=== PATIENT | female | born 1990 | race Two or more races ===

== ENCOUNTER 2019-01-25 04:04 | Inpatient (IN) | payer OTHER ==
[~2019-01-25] VITALS: Ht 157.5 cm; Wt 54.0 kg
[2019-01-25] MEDS ORDERED: OXYTOCIN 30U/ 0.9% NaCL 500ML 500 ML IV PRN (06:24)
[2019-01-25] MEDS ORDERED: OXYTOCIN 30U/ 0.9% NaCL 500ML 500 ML IV ONE (06:24)
[2019-01-25] MEDS ORDERED: D5%-LACTATED RINGERS 1,000 ML IV SCH (06:24)
[2019-01-25] MEDS ORDERED: LACTATED RINGERS 1,000 ML IV SCH (06:24)
[2019-01-25] MEDS ORDERED: FENTANYL/BUPIV./NS/PF 250 ML EPIDCONT SCH (06:24)
[2019-01-25] MEDS ORDERED: NEWBORN KIT ONE (06:29)
[2019-01-25] MEDS: LACTATED RINGERS 1,000 ML IVBOLUS PRN ×2 (06:30→08:25)
[2019-01-25] MEDS ORDERED: EPHEDRINE 50 MG/ML, 1ML IVPush PRN (06:30)
[2019-01-25] MEDS ORDERED: LIDOCAINE 1%, 20ML ONE (06:30)
[2019-01-25] MEDS ORDERED: MISOPROSTOL 200 MCG TABLET ONE (06:30)
[2019-01-25] MEDS ORDERED: CALCIUM CARBONATE 500 MG TAB.CHEW PO PRN (06:30)
[2019-01-25] MEDS ORDERED: FENTANYL PF 100 MCG/2ML IVPush PRN (06:30)
[2019-01-25] MEDS ORDERED: ONDANSETRON 2MG/ML, 2ML IVPush PRN (06:30)
[2019-01-25] MEDS ORDERED: FENTANYL PF 100 MCG/2ML IV PRN (06:30)
[2019-01-25] MEDS ORDERED: OXYTOCIN 30U/ 0.9% NaCL 500ML 500 ML ONE (06:30)
[2019-01-25] MEDS ORDERED: TERBUTALINE 1 MG/ML, 1ML IVPush PRN (06:30)
[2019-01-25 06:53] LABS: BASOPHILS # (AUTO) 0.02 x10^3/uL (0-0.1); BASOPHILS % (AUTO) 0 % (0-1); EOSINOPHILS # (AUTO) 0.09 x10^3/uL (0-0.4); EOSINOPHILS % (AUTO) 1 % (1-7); LYMPHOCYTES # (AUTO) 1.89 x10^3/uL (1-3.4); LYMPHOCYTES % (AUTO) 15 % (22-44); MD NO; MEAN CORPUSCULAR HEMOGLOBIN 31.3 pg (27.0-34.8); MEAN CORPUSCULAR HGB CONC 33.2 g/dL (32.4-35.8); MEAN CORPUSCULAR VOLUME 94.4 fL (80-100); MEAN PLATELET VOLUME 8.8 fL (7.4-10.4); MONOCYTES # (AUTO) 0.72 x10^3/uL (0.2-0.8); MONOCYTES % (AUTO) 6 % (2-9); NEUTROPHILS % (AUTO) 78 % (42-75); PLATELET COUNT 223 x10^3/uL (130-400); RED BLOOD COUNT 4.27 x10^6/uL (3.82-5.3); RED CELL DISTRIBUTION WIDTH 14.3 % (9.6-15.2)
[2019-01-25] MEDS ORDERED: LIDOCAINE/PF 1.5%-EPI 1:200K, 30ML ONE (08:36)
[2019-01-25] MEDS: LACTATED RINGERS 1,000 ML IV SCH (11:03)
[2019-01-26] MEDS: LACTATED RINGERS 1,000 ML IV SCH ×4 (00:04→16:04)
[2019-01-26] MEDS ORDERED: FENTANYL/BUPIV./NS/PF 250 ML EPIDCONT SCH (00:04)
[2019-01-26] MEDS ORDERED: DIPHENHYDRAMINE 50 MG/ML, 1ML IVPush PRN (00:30)
[2019-01-26] MEDS ORDERED: NALOXONE 0.4 MG/ML, 1ML IVPush PRN (00:30)
[2019-01-26] MEDS ORDERED: EPHEDRINE 50 MG/ML, 1ML IVPush PRN (00:30)
[2019-01-26] MEDS ORDERED: ONDANSETRON 2MG/ML, 2ML IVPush PRN (00:30)
[2019-01-26] MEDS ORDERED: LACTATED RINGERS 1,000 ML IVBOLUS PRN (00:30)
[2019-01-26] MEDS ORDERED: METOCLOPRAMIDE 5 MG/ML, 2ML ONE (03:42)
[2019-01-26] MEDS ORDERED: SODIUM CITRATE/CITRIC ACID 30 ML UDC ONE (03:42)
[2019-01-26] MEDS ORDERED: OXYTOCIN 30U/ 0.9% NaCL 500ML 500 ML ONE (04:48)
[2019-01-26] MEDS: OXYTOCIN 30U/ 0.9% NaCL 500ML 500 ML IV SCH ×6 (05:02→15:02)
[2019-01-26 05:26] LABS: MEAN CORPUSCULAR VOLUME 94.3 fL (80-100); MEAN PLATELET VOLUME 8.7 fL (7.4-10.4); PLATELET COUNT 199 x10^3/uL (130-400); RED BLOOD COUNT 3.12 x10^6/uL (3.82-5.3); RED CELL DISTRIBUTION WIDTH 14.1 % (9.6-15.2)
[2019-01-26] MEDS ORDERED: IBUPROFEN 600 MG TABLET PO PRN (05:30)
[2019-01-26] MEDS ORDERED: CALCIUM CARBONATE 500 MG TAB.CHEW PO PRN (05:30)
[2019-01-26] MEDS ORDERED: OXYcodone IR 5MG TABLET PO PRN ×2 (05:30)
[2019-01-26] MEDS ORDERED: ACETAMINOPHEN 325 MG TABLET PO SCH (05:30)
[2019-01-26] MEDS ORDERED: BISACODYL 10 MG SUPP PR PRN (05:30)
[2019-01-26] MEDS ORDERED: MISOPROSTOL 200 MCG TABLET PR PRN (05:30)
[2019-01-26] MEDS ORDERED: ACETAMINOPHEN 325 MG TABLET PO PRN (05:30)
[2019-01-26] MEDS ORDERED: ONDANSETRON 2MG/ML, 2ML IV PRN (05:30)
[2019-01-26 05:45] LABS: BASOPHILS # (AUTO) 0.03 x10^3/uL (0-0.1); BASOPHILS % (AUTO) 0 % (0-1); EOSINOPHILS % (AUTO) 0 % (1-7); LYMPHOCYTES # (AUTO) 1.04 x10^3/uL (1-3.4); LYMPHOCYTES % (AUTO) 5 % (22-44); MD SCAN; MONOCYTES # (AUTO) 1.19 x10^3/uL (0.2-0.8); MONOCYTES % (AUTO) 5 % (2-9); NEUTROPHILS # (AUTO) 20.01 x10^3/uL (1.8-6.8); NEUTROPHILS % (AUTO) 90 % (42-75)
[2019-01-26] MEDS ORDERED: IBUPROFEN 600 MG TABLET ONE (06:25)
[2019-01-26 08:00] VITALS: BP 92/58
[2019-01-26] MEDS: PRENATAL VIT/IRON/FA 1 EACH TABLET PO SCH (09:00)
[2019-01-26 11:56] LABS: MEAN CORPUSCULAR HGB CONC 34.5 g/dL (32.4-35.8); MEAN CORPUSCULAR VOLUME 95.5 fL (80-100); MEAN PLATELET VOLUME 8.5 fL (7.4-10.4); PLATELET COUNT 173 x10^3/uL (130-400); RED BLOOD COUNT 2.42 x10^6/uL (3.82-5.3); RED CELL DISTRIBUTION WIDTH 14.2 % (9.6-15.2)
[2019-01-26 12:00] VITALS: BP 93/61
[2019-01-26] MEDS: ACETAMINOPHEN 500 MG TABLET PO SCH ×3 (12:17→23:54)
[2019-01-26 12:20] LABS: BASOPHILS # (AUTO) 0.04 x10^3/uL (0-0.1); BASOPHILS % (AUTO) 0 % (0-1); EOSINOPHILS # (AUTO) 0.02 x10^3/uL (0-0.4); EOSINOPHILS % (AUTO) 0 % (1-7); LYMPHOCYTES # (AUTO) 1.74 x10^3/uL (1-3.4); LYMPHOCYTES % (AUTO) 8 % (22-44); MD SCAN; MONOCYTES # (AUTO) 1.02 x10^3/uL (0.2-0.8); MONOCYTES % (AUTO) 5 % (2-9); NEUTROPHILS # (AUTO) 19.74 x10^3/uL (1.8-6.8); NEUTROPHILS % (AUTO) 88 % (42-75)
[2019-01-26 15:45] VITALS: BP 90/62
[2019-01-26 19:30] VITALS: BP 90/57
[2019-01-26] MEDS: DOCUSATE 100 MG CAPSULE PO PRN (23:54)
[2019-01-27 00:04] VITALS: BP 94/61
[2019-01-27] MEDS: LACTATED RINGERS 1,000 ML IV SCH ×3 (00:04→16:04)
[2019-01-27] MEDS: OXYTOCIN 30U/ 0.9% NaCL 500ML 500 ML IV SCH ×2 (01:02→07:34)
[2019-01-27 04:30] VITALS: BP 90/55
[2019-01-27] MEDS: ACETAMINOPHEN 500 MG TABLET PO SCH ×3 (05:48→17:22)
[2019-01-27 07:30] VITALS: BP 91/56
[2019-01-27] MEDS: DOCUSATE 100 MG CAPSULE PO PRN (08:01)
[2019-01-27] MEDS: PRENATAL VIT/IRON/FA 1 EACH TABLET PO SCH (08:01)
[2019-01-27] MEDS ORDERED: FERR324T5 PO (09:47)
[2019-01-27] MEDS ORDERED: OXYC-302 PO (09:49)
[2019-01-27] MEDS ORDERED: IBUP-1223 PO (09:49)
[2019-01-27] MEDS ORDERED: DOCU-131 PO (09:50)
[2019-01-27 09:55] LABS: MEAN CORPUSCULAR HEMOGLOBIN 31.8 pg (27.0-34.8); MEAN CORPUSCULAR HGB CONC 33.4 g/dL (32.4-35.8); MEAN CORPUSCULAR VOLUME 95.4 fL (80-100); PLATELET COUNT 183 x10^3/uL (130-400); RED BLOOD COUNT 2.11 x10^6/uL (3.82-5.3); RED CELL DISTRIBUTION WIDTH 14.1 % (9.6-15.2)
[2019-01-27 09:57] LABS: HEMOGRAM NOTE RECHECKED
[2019-01-27 10:15] LABS: BASOPHILS # (AUTO) 0.02 x10^3/uL (0-0.1); BASOPHILS % (AUTO) 0 % (0-1); EOSINOPHILS % (AUTO) 1 % (1-7); LYMPHOCYTES # (AUTO) 2.02 x10^3/uL (1-3.4); LYMPHOCYTES % (AUTO) 9 % (22-44); MD SCAN; MONOCYTES # (AUTO) 0.94 x10^3/uL (0.2-0.8); MONOCYTES % (AUTO) 4 % (2-9); NEUTROPHILS # (AUTO) 18.99 x10^3/uL (1.8-6.8); NEUTROPHILS % (AUTO) 86 % (42-75)
[2019-01-27] MEDS ORDERED: FERROUS GLUCONATE 324 MG TABLET PO SCH (17:00)
== END 2019-01-27 19:10 | disposition home or self-care (01) | DRG 806 ==
LOC: LDOP 04:04 → LDIP 06:32 → 2NW 01-26 07:40
PROVIDERS: ADMIT Obstetrics & Gynecology; ATTEND Obstetrics & Gynecology
PROC: 0KQM0ZZ Repair Perineum Muscle, Open Approach (ICD-10-PCS; principal; 2019-01-26)
PROC: 10D07Z6 Extraction of Products of Conception, Vacuum, Via Natural or Artificial Opening (ICD-10-PCS; 2019-01-26)
PROC: 10H07YZ Insertion of Other Device into Products of Conception, Via Natural or Artificial Opening (ICD-10-PCS; 2019-01-26)
PROC: 10907ZC Drainage of Amniotic Fluid, Therapeutic from Products of Conception, Via Natural or Artificial Opening (ICD-10-PCS; 2019-01-26)
PROC: 3E0R3BZ Introduction of Anesthetic Agent into Spinal Canal, Percutaneous Approach (ICD-10-PCS; 2019-01-26)
PROC: 00HU33Z Insertion of Infusion Device into Spinal Canal, Percutaneous Approach (ICD-10-PCS; 2019-01-26)
DX: O24.420 Gestational diabetes mellitus in childbirth, diet controlled (principal); O72.1 Other immediate postpartum hemorrhage; Z37.0 Single live birth; O66.0 Obstructed labor due to shoulder dystocia; O70.1 Second degree perineal laceration during delivery; O75.81 Maternal exhaustion complicating labor and delivery; O76 Abnormality in fetal heart rate and rhythm complicating labor and delivery; Z3A.40 40 weeks gestation of pregnancy; D64.9 Anemia, unspecified; O90.81 Anemia of the puerperium
CPT/HCPCS: 36415; J7121; 82803; 82947; 82962; 85025; 86850; 86900; G0378; J2590; J3010; J7120